=== PATIENT | male | born 1990 | race Two or more races ===

== ENCOUNTER 2023-07-01 08:17 | Emergency (ER) | payer OTHER ==
[~2023-07-01] VITALS: Ht 198.1 cm; Wt 81.6 kg
[2023-07-01] MEDS ORDERED: DOLOGESIC 500-1 EACH PO (12:37)
== END 2023-07-01 12:54 | disposition home or self-care (01) ==
LOC: ER 08:18
DX: R51.9 Headache, unspecified (principal); G50.1 Atypical facial pain; M79.645 Pain in left finger(s)